=== PATIENT | female | born 2000 | race Caucasian/White ===

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

== ENCOUNTER 2022-10-01 19:45 | Emergency (ER) | payer MEDICAID ==
[2022-10-01] MEDS ORDERED: cefTRIAXone (ROCEPHIN) 500 MG VIAL ONE (20:09)
[2022-10-01] MEDS ORDERED: Lidocaine 1% PF 5 ML VIAL ONE (20:09)
[2022-10-01 20:12] LABS: Bacteria/HPF 2+ HPF (None Seen); Bilirubin Negative (Negative); Blood, Urine Negative (Negative); Clarity Clear (Clear); Glucose, Urine (Dipstick) Normal (Negative); Ketone, Urine Negative (Negative); Leukocyte 500 Leu/uL (Negative); Mucous/LPF Rare LPF (<2+); Nitrite Negative (Negative); Pregnancy Test - Urine (BHCG) Negative (Negative); Pregu Control Background? CLEAR/WHITE (CLR/WHITE); Pregu Control Bar Appear? YES (CONTROL BAR); Protein, Urine (Dipstick) 20 mg/dL (Neg-Trace); Specific Gravity 1.014 (1.002-1.036); Specific Gravity, Urine 1.014 (1.002-1.036); Urobilinogen Normal mg/dL (Less than 2)
[2022-10-01 20:23] LABS: RBC/HPF 0-3 HPF (0-3)
== END 2022-10-01 20:56 | disposition home or self-care (01) ==
LOC: ERS 19:45
DX: Z20.2 Contact with and (suspected) exposure to infections with a predominantly sexual mode of transmission (principal)
CPT/HCPCS: 81003; 81015; 81025; 96372; 99283; J0696